=== PATIENT | male | born 1950 | race Caucasian/White ===

== ENCOUNTER 2021-07-23 12:09 | Emergency (ER) | payer MEDICARE, BC ==
[~2021-07-23] VITALS: Ht 190.5 cm; Wt 138.1 kg
--- NOTE | 2021-07-23 12:42 | PHYS DOC ---
General Adult EDM: Chief Complaint: HYPOTENSION HPI: HPI: Patient is a 70-year-old male who presents to the emergency department for near syncope. Patient reports that he was at [employer] today and he got hot and started experiencing back pain so he went outside and sat down. He reports after [employer] ended he stood up from the bench that he was sitting on and fell backwards. He denies passing out. [place] that he was in the hospital since Saturday for cellulitis in his lower legs and at that time they gave him IV antibiotics and IV fluids. He reports that they gave him too much IV fluids to where he went into congestive heart failure and they had to put him on a diuretic. Patient has a history of CHF, diabetes, hypertension, hyperlipidemia, A. fib, and neuropathy. He is on Eliquis. He reports that he cannot get his blood sugars under control. He states he has been taking 30 units 3 times daily of regular insulin and Toujeo 95 units at nighttime. He denies fevers, chest pain, shortness of breath, dizziness, nausea, vomiting. Review of Systems: Review of Systems: Constitutional: See HPI Respiratory: See HPI Cardiovascular: See HPI GI: See HPI Musculoskeletal: See HPI Neurologic: See HPI Endocrine: See HPI Physical Exam: PE: Constitutional: Well developed, well nourished, no acute distress, non-toxic appearance. [] HENT: Normocephalic, atraumatic, bilateral external ears normal, oropharynx moist, no oral exudates, nose normal. [] Eyes: PERRL, 5 mm bilaterally, EOMI, conjunctiva normal, no discharge. [] Neck: Normal range of motion, no tenderness, supple, no stridor. [] Cardiovascular:Heart rate regular rhythm, no murmur [] Lungs & Thorax: Bilateral breath sounds clear to auscultation [] Abdomen: Bowel sounds normal, soft, no tenderness, no masses, no pulsatile masses. [] Skin: Warm, dry, no erythema, no rash, darkened discoloration of the bilateral anterior aspects of lower extremities likely peripheral vascular disease. His lower extremities are not red, warm or swollen. There are no wounds noted to his lower extremities.. [] Back: No tenderness, normal range of motion Extremities: No tenderness, no cyanosis, no clubbing, ROM intact, no edema. [] Neurologic: Alert and oriented X 3, normal motor function, normal sensory fu nction, no focal deficits noted, patient ambulatory, no limb ataxia. [] Psychologic: Affect normal, judgement normal, mood normal. [] Current Patient Data: Labs: Laboratory Tests Test 07/23/21 13:00 07/23/21 13:15 White Blood Count 11.0 x10^3/uL Red Blood Count 4.61 x10^6/uL Hemoglobin 14.1 g/dL Hematocrit 41.7 % Mean Corpuscular Volume 90 fL Mean Corpuscular Hemoglobin 31 pg Mean Corpuscular Hemoglobin Concent 34 g/dL Red Cell Distribution Width 15.0 % Platelet Count 345 x10^3/uL Neutrophils (%) (Auto) 69 % Lymphocytes (%) (Auto) 18 % Monocytes (%) (Auto) 9 % Eosinophils (%) (Auto) 3 % Basophils (%) (Auto) 2 % Neutrophils # (Auto) 7.5 x10^3uL Lymphocytes # (Auto) 1.9 x10^3/uL Monocytes # (Auto) 1.0 x10^3/uL Eosinophils # (Auto) 0.3 x10^3/uL Basophils # (Auto) 0.2 x10^3/uL Sodium Level 134 mmol/L Potassium Level 3.9 mmol/L Chloride Level 92 mmol/L Carbon Dioxide Level 35 mmol/L Anion Gap 7 Blood Urea Nitrogen 97 mg/dL Creatinine 3.5 mg/dL Estimated GFR (Cockcroft-Gault) 17.5 BUN/Creatinine Ratio 28 Glucose Level 291 mg/dL Calcium Level 9.6 mg/dL Total Bilirubin 0.9 mg/dL Aspartate Amino Transf (AST/SGOT) 29 U/L Alanine Aminotransferase (ALT/SGPT) 38 U/L Alkaline Phosphatase 80 U/L Troponin I High Sensitivity 21 ng/L CO-Llx-M-Type Natriuretic Peptide 1140 pg/mL Total Protein 7.7 g/dL Albumin 3.3 g/dL Albumin/Globulin Ratio 0.8 Urine Collection Type Clean catch Urine Color Yellow Urine Clarity Clear Urine pH 5.5 Urine Specific [place] >=1.030 Urine Protein Neg Urine Glucose (UA) Neg mg/dL Urine Ketones (Stick) Neg mg/dL Urine Blood Large Urine Nitrite Neg Urine Bilirubin Neg Urine Urobilinogen Dipstick 0.2 mg/dL Urine Leukocyte Esterase Neg Urine RBC 6-10 /HPF Urine WBC 0 /HPF Urine Squamous Epithelial Cells Many /LPF Urine Bacteria 0 /HPF Current Medications Medications (Trade) Dose Ordered Sig/Kiley Route PRN Reason Start Time Stop Time Status Last Admin Dose Admin Sodium Chloride 500 ml @ 0 mls/hr 1X ONCE IV 07/23/21 12:45 07/23/21 12:48 DC 07/23/21 12:45 EKG: EKG: EKG performed by ER staff at 1246 shows A. fib with a rate of 68, no STEMI read by Dr. Huber at 1250 [] Radiology/Procedures: Radiology/Procedures: []STATUS: REG ERORD. PHYSICIAN: PAT PICKETT APRN REASON: near syncope PROCEDURE: PORTABLE CHEST 1V INDICATION: Reason: near syncope / Spl. Instructions: / History: COMPARISON: None. FINDINGS: Frontal view of chest obtained. Mild interstitial opacities at the lung bases Cardiac silhouette unremarkable. Degenerative changes spine IMPRESSION: * Mild interstitial opacities at lung bases. Commonly secondary to atelectasis but mild infiltrate not excluded. Electronically signed by: Daniel Tavarez MD (07/23/2021 1:28 PM) [id number] DICTATED AND SIGNED BY: DANIEL TAVAREZ MD DATE: 07/23/21 1327 CC: RENAE HUBER MD; PAT PICKETT APRN; PCP,UNKNOWN ~ Heart Score: C/O Chest Pain: No Risk Factors: Risk Factors: DM, Current or recent (<one month) smoker, HTN, HLP, family history of CAD, obesity. Risk Scores: Score 0 - 3: 2.5% MACE over next 6 weeks - Discharge Home Score 4 - 6: 20.3% MACE over next 6 weeks - Admit for Clinical Observation Score 7 - 10: 72.7% MACE over next 6 weeks - Early Invasive Strategies Course & Med Decision Making: Course & Med Decision Making Pertinent Labs and Imaging studies reviewed. (See chart for details) [] Patient resents to the emergency department for near syncope that started while he was in [employer]. Patient reports that he was recently inpatient for cellulitis and went into CHF and they had to give him a diuretic. Work-up in the ER consisted of blood work including troponin and BNP, EKG, chest x-ray. Orthostatic vital signs obtained. Patient treated with a small IV bolus as he is hypotensive.. Patient CBC is unremarkable. Her BUN was 97 creatinine 3.5, GFR 17.5. Patient reports that he saw his game bird farmer on and at that time the GFR was 29. Patient's BNP is elevated at 1140. Negative troponin. Following IV fluids, patient is no longer symptomatic and is not having any dizziness. Negative orthostatic vital signs followed IV fluids. Patient reports that he was taking 3 mg of Bumex twice a day and when he saw his game bird farmer they told him to change it to 2 mg twice a day. I discussed patient's case with Dr. Carlos at [facility] because I would like to transfer the patient there for nephrology consultation. You reported that patient's acute kidney injury is likely due to his diuretics and he should receive IV fluids and hold his diuretic and follow-up with his game bird farmer. He does not see a need for nephrology consultation. I considered admission for patient but as he is no longer symptomatic and no longer orthostatic I advised patient to hold his dose of diuretic today and call his game bird farmer in the morning to set up a follow- up appointment. Cosnulted supervising physician. Patient's vital signs are stable. He ambulated without any symptoms of dizziness. I discussed these fin dings with patient as well as consultation and he is agreeable to care plan. I discussed with patient all findings and diagnostic testing as well as the need to follow-up with PCP for further evaluation and treatment or return to the ER if any new or worsening symptoms. Strict return precautions were also discussed at length. Patient voiced understanding and agreement with the plan. Patient is hemodynamically stable at the time of disposition. Karol Disclaimer: Karol Disclaimer: This electronic medical record was generated, in whole or in part, using a voice recognition dictation system. Departure Departure: Impression: Primary Impression: SHONNA (acute kidney injury) Additional Impression: Orthostatic hypotension Disposition: HOME / SELF CARE / HOMELESS Condition: GOOD Referrals: PCP,UNKNOWN (PCP) Patient Instructions: Acute Kidney Injury, Orthostatic Hypotension Additional Instructions: You are seen in the emergency department today for near syncope. As we discussed you are experiencing acute kidney injury. This is likely due to dehydration with and your diuretic use. Please hold your diuretic for today and call your game bird farmer first thing in the morning to set up a follow-up appointment. Please relay to your game bird farmer your results. Your BUN was 97, creatinine 3.5 and your GFR was 17.5. Your BNP was 1140. Please slowly make position changes so you do not have a syncopal episode. Return to the emergency department if you develop chest pain, shortness of breath, high fevers refractory to treatment, tractable nausea or vomiting, dizziness, lightheadedness, near-syncope or syncope. PAT PICKETT APRN Jul 23, 2021 12:42
[2021-07-23] MEDS ORDERED: IV NORMAL SALINE 500ML 500 ML IV ONE (12:45)
--- NOTE | 2021-07-23 13:30 | RAD ---
INDICATION: Reason: near syncope / Spl. Instructions: / History: COMPARISON: None. FINDINGS: Frontal view of chest obtained. Mild interstitial opacities at the lung bases Cardiac silhouette unremarkable. Degenerative changes spine IMPRESSION: * Mild interstitial opacities at lung bases. Commonly secondary to atelectasis but mild infiltrate n ot excluded. Electronically signed by: Christiano Frost MD (07/23/2021 1:28 PM) [id number]
[2021-07-23 13:34] LABS: BASO # 0.2 x10^3/uL (0.0-0.2); BASO % 2 % (0-3); EOS # 0.3 x10^3/uL (0.0-0.7); EOS % 3 % (0-3); HEMATOCRIT 41.7 % (39.0-53.0); HEMOGLOBIN 14.1 g/dL (13.0-17.5); LYMPH # 1.9 x10^3/uL (1.0-4.8); LYMPH % 18 % (24-48); MEAN CORPUSCULAR HEMOGLOBIN 31 pg (25-35); MEAN CORPUSCULAR HGB CONC 34 g/dL (31-37); MEAN CORPUSCULAR VOLUME 90 fL (79-100); MONO % 9 % (0-9); NEUT # 7.5 x10^3uL (1.8-7.7); NEUT % 69 % (31-73); PLATELET COUNT 345 x10^3/uL (140-400); RED BLOOD COUNT 4.61 x10^6/uL (4.30-5.70)
[2021-07-23 13:43] LABS: CALCIUM 9.6 mg/dL (8.5-10.1); CREATININE 3.5 mg/dL (0.7-1.3); GFR 17.5; POTASSIUM 3.9 mmol/L (3.5-5.1)
[2021-07-23 13:53] LABS: ALBUMIN 3.3 g/dL (3.4-5.0); ALBUMIN/GLOBULIN RATIO 0.8 (1.0-1.7); TOTAL BILIRUBIN 0.9 mg/dL (0.2-1.0); TOTAL PROTEIN 7.7 g/dL (6.4-8.2)
[2021-07-23 14:12] LABS: BACTERIA,URINE 0 /HPF (0-FEW); CLARITY,URINE CLEAR; COLOR,URINE YELLOW; GLUCOSE,URINE NEG (NEG); NITRITE,URINE NEG (NEG); SQUAMOUS EPITHELIAL CELL,UR MANY /LPF; UROBILINOGEN,URINE 0.2 mg/dL (0.2 mg/dL); WBC,URINE 0 /HPF (0-4)
[2021-07-23 14:30] VITALS: BP 97/64
--- NOTE | 2021-07-23 19:06 | EKG ---
[address] [address] Test Date: 2021-07-23 Test Time: 12:46:25 Pat Name: TARUN MONSON Department: Room: Gender: M [employer]: : 1950 Requested By: PAT PICKETT Order Number: [id number] Reading MD: Andrez Ott Measurements Intervals [place] Rate: 68 P: [place]: QRS: 11 QRSD: 96 T: 20 QT: 456 QTc: 490 Interpretive Statements ATRIAL FIBRILLATION Electronically Signed On 07-26-2021 18:26:29 CDT by Andrez Ott
== END 2021-07-23 15:08 | disposition home or self-care (01) ==
LOC: ER 12:09
DX: N17.9 Acute kidney failure, unspecified (principal); I95.1 Orthostatic hypotension; I11.0 Hypertensive heart disease with heart failure; I50.9 Heart failure, unspecified; E78.5 Hyperlipidemia, unspecified; I48.91 Unspecified atrial fibrillation; E11.40 Type 2 diabetes mellitus with diabetic neuropathy, unspecified; Z20.822 Contact with and (suspected) exposure to COVID-19; Z79.01 Long term (current) use of anticoagulants
CPT/HCPCS: 36415; 71045; 80053; 81001; 83880; 84484; 85025; 87426; 93005; 99285; C9803; J7040; U0003